=== PATIENT | male | born 2000 | race African-American/Black ===

== ENCOUNTER 2019-11-09 02:34 | Emergency (ER) | payer BC ==
[~2019-11-09] VITALS: Ht 185.4 cm; Wt 63.5 kg
[2019-11-09 02:34] VITALS: BP 98/64
--- NOTE | 2019-11-09 02:34 | NUR ---
PT AMBULATED FROM [facility] TO BED 11.
[2019-11-09] MEDS ORDERED: methylPREDNISolone SS 125 MG in WATER STERILE 2 ML IVP ONE (02:40)
[2019-11-09] MEDS ORDERED: diphenhydrAMINE 50 MG/ML VIAL IVP ONE (02:40)
[2019-11-09] MEDS ORDERED: FAMOTIDINE 20 MG/2 ML VIAL IVP ONE (02:40)
[2019-11-09] MEDS ORDERED: NACL 0.9% 1,000 ML IV ONE ×2 (02:40→03:55)
[2019-11-09] MEDS ORDERED: WATER STERILE 10 ML MC ONE (02:42)
[2019-11-09] MEDS ORDERED: methylPREDNISolone SS 125 MG/2 ML VIAL ONE (02:42)
--- NOTE | 2019-11-09 02:53 | NUR ---
19 Y/O MALE BIBA. PRESENTS TO ED, C/O ALLERGIC REACTION. PT WAS EATING CASHEW WHEN ALLERGIC REACTION APPEARED. HIVES AROUND TORSO NOTED. PT DENIES ANY SOB/DIFFICULTY BREATHING. LUNG SOUNDS BILAT CLEAR. PT DENIES ANY CHEST PAIN. 25MG BENADRYL GIVEN BY [employer] ENROUTE, IV PUSH. PT SINUS TACHY DURING ASSESSMENT. PT STABLE CONDITION. ERMD AWARE. WILL CONTINUE TO MONITOR.
--- NOTE | 2019-11-09 03:15 | NUR ---
HIVES ON TORSO DECREASED. PT STATES FEELING TIRED AND DROWSY. VSS. ERMD AWARE. WILL CONTINUE TO MONITOR.
[2019-11-09] MEDS ORDERED: LORazepam 2 MG/ML VIAL IVP ONE (03:55)
[2019-11-09 04:42] VITALS: BP 120/65
--- NOTE | 2019-11-09 04:42 | NUR ---
PT DISCHARGED WITH PAPERWORK. EDUCATED PT REGARDING MEDICATIONS AND D/C DIAGNOSIS. PT VERBALIZED UNDERSTANDING OF TEACHING. TOLD PT TO FOLLOW UP WITH PCP AND WHEN TO RETURN TO ED. PT VSS. NO HIVES NOTED. DENIES ANY SOB/CHEST PAIN. AMBULATES WITH SLOW STEADY GAIT. ALL QUESTIONS ANSWERED.
== END 2019-11-09 04:42 | disposition home or self-care (01) ==
LOC: MED 02:34
DX: L50.9 Urticaria, unspecified (principal); Z88.0 Allergy status to penicillin; Z88.8 Allergy status to other drugs, medicaments and biological substances
CPT/HCPCS: 96374; 96375; 99283; J1200; J2060; J2930; J3490